=== PATIENT | female | born 1985 | race Caucasian/White ===

== ENCOUNTER 2023-07-21 11:37 | Observation (INO) | payer BC, SELFPAY ==
[2023-07-21 11:59] VITALS: BP 121/57; BMI 31.8
== END 2023-07-21 16:03 | disposition home or self-care (01) ==
LOC: LDRP 11:37
PROVIDERS: ADMITTING PHYSICIAN Obstetrics & Gynecology; PRIMARYCARE PHYSICIAN Nurse Practitioner Family
DX: O36.8330 Maternal care for abnormalities of the fetal heart rate or rhythm, third trimester, not applicable or unspecified (principal); Z3A.34 34 weeks gestation of pregnancy; O34.03 Maternal care for unspecified congenital malformation of uterus, third trimester; Q51.3 Bicornate uterus
CPT/HCPCS: 76818; G0378

== ENCOUNTER → 2023-07-22 09:31 | Outpatient (REF) | payer BC, SELFPAY | LOC: PNTC 09:31 | PROVIDERS: ATTENDING PHYSICIAN Obstetrics & Gynecology | DX: O36.8330 Maternal care for abnormalities of the fetal heart rate or rhythm, third trimester, not applicable or unspecified (principal) | CPT/HCPCS: 59025; 76818 ==

== ENCOUNTER 2023-08-27 09:09 | Inpatient (IN) | payer BC, SELFPAY ==
[2023-08-27] MEDS: LR 1000 IV (09:30)
[2023-08-27 09:44] VITALS: BP 122/79; BMI 30.9
[2023-08-27 10:02] LABS: % Basophils 0.4 % (0-2); % Eosinophils 0.5 % (0-6); % Immature Granulocytes 0.5 % (0-0.5); % Lymphocytes 19.3 % (20.5-51.1); % Monocytes 7.4 % (1.7-9.3); % Neutrophils 71.9 % (42.2-75.2); Absolute Lymphocytes 1.7 10^3/uL (1.2-3.4); Absolute Monocytes 0.6 10^3/uL (0.1-0.6); Absolute Neutrophils 6.1 10^3/uL (1.4-6.5); Hematocrit 35.2 % (37.0-47.0); Hemoglobin 12.3 g/dL (12.0-16.0); Mean Corp Hgb Conc. 34.9 g/dL (33.0-37.0); Mean Corpuscular Hgb 31.8 pg (27.0-31.0); Mean Platelet Volume 10.7 fL (7.4-10.4); Nucleated Red Blood Cells % 0 %; Platelet Count 264 10^3/uL (130-400); Red Blood Cell Count 3.87 10^6/uL (4.20-5.40); Red Cell Dist. Width 12.8 % (11.5-14.5); White Blood Cell Count 8.5 10^3/uL (4.8-10.8)
[2023-08-27] MEDS: PITOCIN 30 UNITS/NSS 500 ML IV (10:04)
[2023-08-27] MEDS: FENTANYL/BUPIVACAINE 100 EPIDURAL (16:54)
[2023-08-27] MEDS: SUBLIMAZE 100 MCG EPIDURAL (16:54)
[2023-08-28] MEDS: FENTANYL/BUPIVACAINE 100 EPIDURAL (00:20)
[2023-08-28] MEDS: PEPCID 20 MG PO (00:25)
[2023-08-28] MEDS: TYLENOL 1000 MG PO (02:20)
[2023-08-28] MEDS: BICITRA 30 ML PO (02:21)
[2023-08-28] MEDS: ANCEF 10 IV (02:21)
[2023-08-28 03:03] LABS: Cord ABG Comment CORD BLOOD
[2023-08-28 03:08] LABS: HCO3 Cord ABG 22.7 mmol/L; O2 Saturation % Cord ABG 66.9 %; PCO2 Cord ABG 42 mmHg; PO2 Cord ABG 31 mmHg; pH Cord ABG 7.34
[2023-08-28 03:11] LABS: B.E. Cord ABG -2.4 mMOL/L; HCO3 Cord ABG 26.3 mmol/L; O2 Saturation % Cord ABG 16.1 %; PCO2 Cord ABG 60 mmHg; PO2 Cord ABG 12 mmHg; pH Cord ABG 7.25
[2023-08-28] MEDS: REGLAN 10 MG IV (04:27)
[2023-08-28] MEDS: PITOCIN 30 UNITS/NSS 500 ML IV (04:28)
[2023-08-28] MEDS: TORADOL 15 MG IV ×3 (08:47→20:42)
[2023-08-28] MEDS: SENOKOT-S 1 TABLET PO (08:48)
--- NOTE | 2023-08-28 18:02 | W.PN.ANS.POP ---
Anesthesia Post Operative
- Anesthesia Post Op Note
Vital Signs Stable-See Nursing Note: Yes
Airway Patent: Yes
Adequate Pain Control: Yes
Change in Mental Status: No
Current Postoperative Nausea & Vomiting: No
Anesthesia Complications: No
General Anesthetic Recall: No
Unplanned Admission: No
Post Op Hydration Adequate: Yes
[2023-08-29] MEDS: TORADOL 15 MG IV (02:58)
[2023-08-29 03:36] LABS: Hematocrit 26.2 % (37.0-47.0); Mean Corp Hgb Conc. 34.4 g/dL (33.0-37.0); Mean Corpuscular Hgb 31.5 pg (27.0-31.0); Mean Corpuscular Volume 91.6 fL (81.0-99.0); Mean Platelet Volume 10.6 fL (7.4-10.4); Platelet Count 219 10^3/uL (130-400); Red Blood Cell Count 2.86 10^6/uL (4.20-5.40); Red Cell Dist. Width 13.1 % (11.5-14.5); White Blood Cell Count 14.9 10^3/uL (4.8-10.8)
[2023-08-29] MEDS: SENOKOT-S 1 TABLET PO (08:48)
[2023-08-29] MEDS: MOTRIN 600 MG PO ×3 (08:48→22:01)
[2023-08-29] MEDS: FEOSOL 325 MG PO (11:52)
[2023-08-30] MEDS: MOTRIN 600 MG PO ×2 (06:19→12:22)
[2023-08-30] MEDS: FEOSOL 325 MG PO (07:49)
[2023-08-30] MEDS: SENOKOT-S 1 TABLET PO (07:50)
[2023-08-31 16:06] LABS: Syphilis/T. pallidum Ab Reflex Negative (Negative)
== END 2023-08-30 14:19 | disposition home or self-care (01) | DRG 788 ==
LOC: LDRP 09:09
PROVIDERS: ADMITTING PHYSICIAN Obstetrics & Gynecology
PROC: 3E033VJ Introduction of Other Hormone into Peripheral Vein, Percutaneous Approach (ICD-10-PCS; 2023-08-27)
PROC: 10D00Z1 Extraction of Products of Conception, Low, Open Approach (ICD-10-PCS; 2023-08-27)
DX: O48.0 Post-term pregnancy (principal); O34.211 Maternal care for low transverse scar from previous cesarean delivery; N85.8 Other specified noninflammatory disorders of uterus; O62.1 Secondary uterine inertia; Z37.0 Single live birth; O69.81X0 Labor and delivery complicated by cord around neck, without compression, not applicable or unspecified; O77.0 Labor and delivery complicated by meconium in amniotic fluid; Z3A.40 40 weeks gestation of pregnancy
CPT/HCPCS: 88307; 36415; 82803; 85025; 85027; 86780; 86850; 86900; 86901

== ENCOUNTER → 2023-12-08 17:13 | Outpatient (REF) | payer BC, SELFPAY | LOC: HWRAD 17:13 | PROVIDERS: ATTENDING PHYSICIAN Nurse Practitioner Family | DX: M25.561 Pain in right knee (principal) | CPT/HCPCS: 73564 ==

== ENCOUNTER → 2024-11-27 14:50 | Outpatient (REF) | payer BC, SELFPAY | LOC: HWWDC 14:50 | PROVIDERS: ATTENDING PHYSICIAN Nurse Practitioner Family | DX: Z12.31 Encounter for screening mammogram for malignant neoplasm of breast (principal) | CPT/HCPCS: 77063; 77067 ==